=== PATIENT | male | born 1955 | race Caucasian/White ===

== ENCOUNTER 2017-06-02 05:40 | Outpatient (CLI) | payer OTHER ==
[~2017-06-02] VITALS: Ht 193 cm; Wt 111.1 kg
[2017-06-02] MEDS ORDERED: SERT100T PO ×2 (16:15)
--- NOTE | 2017-06-03 09:10 | HISTORY AND PHYSICAL ---
DATE OF SERVICE: COLONOSCOPY HISTORY AND PHYSICAL HISTORY OF PRESENT ILLNESS: The patient is a 62-year-old white male referred by Dr. Polk for screening colonoscopy. He reports he had one screening colonoscopy over 10 years ago and does not recall if there are any problems with it. He is deemed to be of average risk. He is not aware of any family history for colon cancer. He does have occasional bright red blood per rectum that he has attributed to hemorrhoids, the last episode was a little over a month ago. There is no associated pain and he denies any bowel habit change. PAST SURGICAL HISTORY: Noncontributory. PAST MEDICAL HISTORY: Significant some depression. MEDICATIONS: His only prescription medication is Zoloft 100 mg daily and he rarely takes anything over the counter. He is not on any pain medication. Denies any aspirin or anti-inflammatory medication usage. 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 He has no past smoking history and occasional social alcohol intake only. FAMILY HISTORY: Mother is living in her early 90s with late onset coronary artery disease requiring bypass in her 80s. Father of complications of prostate cancer in his late 80s. He had one brother who suddenly in his 60s, likely due to a myocardial infarction in his sleep. There is no other family history for sudden . PHYSICAL EXAMINATION: GENERAL: Reveals a well appearing white male in no acute distress. VITAL SIGNS: Blood pressure 148/98. At the end of the interview, he was down 136/86. HEENT: Unremarkable. He is a Mallampati class III oropharyngeal configuration. NECK: Revealed no JVD, adenopathy or bruits. CHEST: Clear. CARDIOVASCULAR: Regular rate and rhythm without murmur, S3 or S4. ABDOMEN: Soft, supple without mass, organomegaly or tenderness. EXTREMITIES: Reveal no cyanosis, clubbing or edema. ASSESSMENT: The patient was set up for screening colonoscopy on 06/03/2016. Prep instructions with Suprep kit were given and questions were answered. I thank you for the referral of this pleasant gentleman. Job ID: [id number] DocumentID: [id number] Dictated Date: 06/02/2017 16:45:57 Senior Corporate Accountant Date: 06/03/2017 08:26:51 Dictated By: WADE GONZALEZ MD
== END 2017-06-02 16:20 ==
LOC: PREOP 05:40
PROVIDERS: ATTEND Internal Medicine
DX: Z01.818 Encounter for other preprocedural examination (principal); Z12.11 Encounter for screening for malignant neoplasm of colon

== ENCOUNTER 2017-06-03 06:30 | Day surgery (SDC) | payer OTHER ==
[~2017-06-03] VITALS: Ht 193 cm; Wt 111.1 kg
[~2017-06-03 06:30] MED LIST: SERT100T PO
[2017-06-03] MEDS ORDERED: 1/2 NS IV SOLUTION 1,000 ML IV STA (06:47)
[2017-06-03] MEDS ORDERED: LIDOCAINE JELLY 2% (XYLOCAINE) 5 ML TUBE MM PRN (07:00)
[2017-06-03 07:16] VITALS: BP 154/94
[2017-06-03] MEDS ORDERED: MIDAZOLAM 2 MG/2 ML (VERSED) VIAL ONE ×2 (07:19)
[2017-06-03] MEDS ORDERED: LIDOCAINE JELLY 2% (XYLOCAINE) 5 ML TUBE ONE (07:20)
[2017-06-03] MEDS ORDERED: fentaNYL INJECTION 100 MCG/2 ML AMP ONE (07:20)
[2017-06-03] MEDS: fentaNYL INJECTION 100 MCG/2 ML AMP IVP PRN ×2 (07:37→07:50)
--- NOTE | 2017-06-03 07:38 | Pre-Op Note & Conscious Sedat ---
Pre-Operative Progress Note H&P Reviewed The H&P was reviewed, patient examined and no changes noted. Date H&P Reviewed: Jun 03, 2017 Time H&P Reviewed: 07:15 Conscious Sedation Pre-Proced ASA Class: 1 Airway Mallampati Classification: (nikolski appropriate class) I. II. III, IV Lungs Heart ASA score ASA 1: a normal healthy patient ASA 2: a patient with a mild systemic disease (mid diabetes, controlled hypertension, obesity ASA 3: a patient with a severe systemic disease that limits activity (angina , COPD, prior Myocardial infarction) ASA 4: a patient with an incapacitating disease that is a constant threat to life (CHF, renal failure) ASA 5: a moribund patient not expected to survive 24 hrs. (ruptured aneurysm) ASA 6: a declared brain patient whose organs are being harvested. For emergent operations, add the letter E after the classification Grade 2 Sedation Plan: Analgesia, Amnesia, Plan communicated to team members, Discussed options with patient/fam, Discussed risks with patient/fam Note The patient is an appropriate candidate to undergo the planned procedure, sedation, and anesthesia. The patient immediately re-assessed prior to indication. WADE GONZALEZ MD Jun 03, 2017 07:38
[2017-06-03] MEDS: MIDAZOLAM 2 MG/2 ML (VERSED) VIAL IVP PRN ×2 (07:39→07:51)
[2017-06-03 08:25] VITALS: BP 145/85
[2017-06-03 08:50] VITALS: BP 151/90
[2017-06-03 08:59] VITALS: BP 151/90
--- NOTE | 2017-06-03 23:51 | HISTORY AND PHYSICAL ---
DATE OF SERVICE: 06/03/2017 COLONOSCOPY HISTORY AND PHYSICAL HISTORY OF PRESENT ILLNESS: The patient is a 62-year-old white male referred by Dr. Polk for screening colonoscopy. He reports he had one screening colonoscopy over 10 years ago and does not recall if there are any problems with it. He is deemed to be of average risk. He is not aware of any family history for colon cancer. He does have occasional bright red blood per rectum that he has attributed to hemorrhoids, the last episode was a little over a month ago. There is no associated pain and he denies any bowel habit change. PAST SURGICAL HISTORY: Noncontributory. PAST MEDICAL HISTORY: Significant some depression. MEDICATIONS: His only prescription medication is Zoloft 100 mg daily and he rarely takes anything over the counter. He is not on any pain medication. Denies any aspirin or anti-inflammatory medication usage. 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 He has no past smoking history and occasional social alcohol intake only. FAMILY HISTORY: Mother is living in her early 90s with late onset coronary artery disease requiring bypass in her 80s. Father of complications of prostate cancer in his late 80s. He had one brother who suddenly in his 60s, likely due to a myocardial infarction in his sleep. There is no other family history for sudden . PHYSICAL EXAMINATION: GENERAL: Reveals a well appearing white male in no acute distress. VITAL SIGNS: Blood pressure 148/98. At the end of the interview, he was down 136/86. HEENT: Unremarkable. He is a Mallampati class III oropharyngeal configuration. NECK: Revealed no JVD, adenopathy or bruits. CHEST: Clear. CARDIOVASCULAR: Regular rate and rhythm without murmur, S3 or S4. ABDOMEN: Soft, supple without mass, organomegaly or tenderness. EXTREMITIES: Reveal no cyanosis, clubbing or edema. ASSESSMENT: The patient was set up for screening colonoscopy on 06/03/2017. Prep instructions with Suprep kit were given and questions were answered. I thank you for the referral of this pleasant gentleman. Job ID: [id number] DocumentID: [id number] Dictated Date: 06/02/2017 16:45:57 Sheep Shearer Date: 06/03/2017 08:26:51 Dictated By: WADE GONZALEZ MD <Dictated by WADE GONZALEZ MD> <Electronically signed by WADE GONZALEZ MD> 06/03/17 1209
--- NOTE | 2017-06-04 08:01 | PROCEDURE REPORT ---
PROCEDURE PHYSICIAN: WADE GONZALEZ DATE OF PROCEDURE: 06/03/2017 COLONOSCOPY SUMMARY: REFERRING PHYSICIAN: Dr. Polk. INDICATION FOR THE PROCEDURE: Screening colonoscopy. PROCEDURE: The patient was placed in the left lateral decubitus position. Prior to undergoing colonoscopy, digital rectal evaluation was performed. The prostate was anodular, nontender and unremarkable to digital inspection. No abnormalities were noted to digital inspection of the anal canal or distal rectal vault. The colonoscope was then inserted into the rectum and under visualization, advanced to cecum. The cecum was identified by identification of ileocecal valve, cecal strap and the appendiceal orifice. Photographic documentation was obtained. Careful inspection was made as the colonoscope was withdrawn. FINDINGS: One small grade I internal hemorrhoid was noted. No other abnormalities were noted involving the anal canal or rectum. No evidence for diverticular disease was noted on today's study. A diminutive, 4 mm sessile polyp was noted in the proximal sigmoid colon. It was biopsied, cauterized with hot forceps with no subsequent blood loss. The descending colon, splenic flexure, transverse colon and hepatic flexure were unremarkable. Present in the proximal ascending colon was an 8 mm sessile, adenomatous appearing polyp. It was photographed, biopsied and ablated, with minimal blood loss. The cecum was unremarkable. ASSESSMENT: One small and one medium sized polyps were noted today and subsequently biopsied and cauterized. As long as there are no surprises on histopathology report, would advocate surveillance colonoscopy in one year. The patient did have one grade 1 internal hemorrhoid, the likely source of intermittent small volume rectal bleeding. He is otherwise asymptomatic. The patient was reassured. I thank you for the referral of this pleasant gentleman. Sincerely, Wade Gonzalez Job ID: [id number] Dictated Date: 06/03/2017 08:25:42 Mystery Shopper Date: 06/04/2017 07:54:28 / mali PINZON
== END 2017-06-03 08:55 | disposition home or self-care (01) ==
LOC: ENDO 06:30
PROVIDERS: ATTEND Internal Medicine
DX: Z12.11 Encounter for screening for malignant neoplasm of colon (principal); D12.5 Benign neoplasm of sigmoid colon; K64.0 First degree hemorrhoids; F32.9 Major depressive disorder, single episode, unspecified; Z79.899 Other long term (current) drug therapy

== ENCOUNTER → 2021-07-03 | Outpatient (CLI) | payer MEDICARE, OTHER ==
--- NOTE | 2021-07-03 13:25 | Diagnostic Imaging Report ---
PROCEDURE: CT abdomen and pelvis without contrast. TECHNIQUE: Multiple contiguous axial images were obtained through the abdomen and pelvis without the use of intravenous contrast. Auto Exposure Controls were utilized during the CT exam to meet ALARA standards for radiation dose reduction. INDICATION: Prostate carcinoma. No prior studies are available for comparison. FINDINGS: Lung bases show tiny nodules in the right lower lobe posterolaterally approximately 4 mm in size, indeterminate. Lung bases are otherwise clear. The liver demonstrates multiple circumscribed low attenuation lesions, most suggestive of cysts. The largest is in the right lobe measuring 18 mm in size. Gallbladder is unremarkable. There is no biliary ductal dilatation. There appears to be a circumscribed low-attenuation lesions in the pancreatic body as well measuring 12 mm, indeterminate. Follow-up would be recommended. The spleen is unremarkable. No adrenal mass is detected. Kidneys are without calculi or hydronephrosis. There appear to be some renal sinus cysts in the left kidney. Aorta is nonaneurysmal. No central retroperitoneal or mesenteric lymphadenopathy is identified. Bowel loops are normal caliber. There is no obstruction. There is some enlargement of prostate gland which contains central calcifications. Bladder is unremarkable. No definite iliac or inguinal lymphadenopathy is seen. There are fat-containing inguinal hernias bilaterally. Bony structures appear nonacute. IMPRESSION: 1. Hepatic and renal cysts. There is also a circumscribed low-attenuation lesion in the pancreatic body near the tail which is indeterminate close follow-up to confirm stability would be recommended. 2. Prostatomegaly. 3. No evidence of abdominal or pelvic lymphadenopathy or metastatic disease. 4. Bilateral fat-containing inguinal hernias. Dictated by: Dictated on workstation # [id number]
--- NOTE | 2021-07-03 14:57 | Diagnostic Imaging Report ---
INDICATION: Newly diagnosed prostate carcinoma. TECHNIQUE: The patient was administered 26.2 mCi of technetium 99m MDP intravenously and whole-body imaging was performed after a 3 hour delay. COMPARISON: No prior bone scans are available for comparison. FINDINGS: There is normal uptake of activity by the axial and appendicular skeleton. There is uptake by the kidneys with excretion into the urinary bladder. There is a small focus of uptake involving the left anterior approximately 5th rib, nonspecific. No other suspicious foci are seen. There are some degenerative changes in the bilateral knees and bilateral shoulders. IMPRESSION: There is a solitary focus of uptake involving the anterior left approximately 5th or 6th rib. This is indeterminate between potential post traumatic change versus solitary metastasis. Continued followup is recommended. Dictated by: Dictated on workstation # [id number]
== END ==
LOC: CARD 11:00
PROVIDERS: ATTEND Urology
DX: C61 Malignant neoplasm of prostate (principal); K76.89 Other specified diseases of liver; N28.1 Cyst of kidney, acquired; K40.20 Bilateral inguinal hernia, without obstruction or gangrene, not specified as recurrent
CPT/HCPCS: 74176; 78306; A9503

== ENCOUNTER → 2021-10-22 | Outpatient (CLI) | payer MEDICARE ==
--- NOTE | 2021-10-22 11:22 | Diagnostic Imaging Report ---
PROCEDURE: CT abdomen and pelvis without contrast. TECHNIQUE: Multiple contiguous axial images were obtained through the abdomen and pelvis without the use of intravenous contrast. Auto Exposure Controls were utilized during the CT exam to meet ALARA standards for radiation dose reduction. INDICATION: Prostate cancer surgery 5 weeks ago. Correlation is made prior CT 07/03/2021. The lung bases are clear. Circumscribed low attenuation lesions throughout the liver are again noted similar to prior exam most consistent with cysts. Low-attenuation circumscribed lesion in the pancreatic tail is stable at 11 mm. Spleen is unremarkable. No adrenal mass is detected. No renal calculi or hydronephrosis is seen. Aorta is nonaneurysmal. No central retroperitoneal or mesenteric lymphadenopathy is detected. Bowel loops are normal caliber. There is no obstruction. Partially filled urinary bladder is unremarkable. There is a cystic structure in the left pelvis just medial to the vascular bundle measuring 3.1 cm. This may represent a small seroma. No definite pelvic lymphadenopathy is identified. Prostate is surgically absent. Bilateral fat-containing inguinal hernias are noted. No definite osteosclerotic bone lesions are identified. Bilateral pars defects at L5-S1 with minimal spinal listhesis is noted. IMPRESSION: Stable hepatic and pancreatic cysts. 2. No evidence of abdominal or pelvic lymphadenopathy or metastatic disease. Patient is status post prostatectomy. There is a cystic lesion that has developed in the left pelvis, perhaps small postoperative fluid collection or seroma. Dictated by: Dictated on workstation # [id number]
== END ==
LOC: RAD 10:51
PROVIDERS: ATTEND Urology
DX: C61 Malignant neoplasm of prostate (principal); K86.89 Other specified diseases of pancreas; Z98.890 Other specified postprocedural states
CPT/HCPCS: 74176